=== PATIENT | female | born 1950 | race Caucasian/White ===

== ENCOUNTER → 2021-09-04 | Outpatient (CLI) | payer OTHER ==
[2016-01-30 08:08] VITALS: BP 167/84
[~2021-09-04] MED LIST: ACET-704 PO; ASCO100019 PO; ATOR20TA58 PO; CARV3.12 PO; CHOLECALCIFEROL 1000 UNIT PO; CYAN-25 PO; DOCU-158 PO; DULA1.5P SQ; FERR325T14 PO; GABA300C18 PO; GLIM4TAB8 PO; INSU100I13 SQ; LEVO100T5 PO; LEVO88TA4 PO; LOSA-73 PO; LOSA100T14 PO; MAGN400C PO; METF10007 PO; METF500T16 PO; ONDA8TAB9 PO; SIMV40TA18 PO; [UNRECOGNIZED DRUG - OTHER] PO
[2021-09-04 09:54] LABS: BASO % 1 % (0-3); EOS # 0.1 x10^3/uL (0.0-0.7); EOS % 4 % (0-3); HEMATOCRIT 30.5 % (36.0-47.0); HEMOGLOBIN 9.7 g/dL (12.0-15.5); LYMPH # 0.6 x10^3/uL (1.0-4.8); LYMPH % 15 % (24-48); MEAN CORPUSCULAR HEMOGLOBIN 29 pg (25-35); MEAN CORPUSCULAR HGB CONC 32 g/dL (31-37); MEAN CORPUSCULAR VOLUME 89 fL (79-100); MONO # 0.5 x10^3/uL (0.0-1.1); MONO % 13 % (0-9); NEUT # 2.7 x10^3/uL (1.8-7.7); NEUT % 68 % (31-73); PLATELET COUNT 244 x10^3/uL (140-400); RED CELL DISTRIBUTION WIDTH 16.6 % (11.5-14.5); WHITE BLOOD COUNT 3.9 x10^3/uL (4.0-11.0)
[2021-09-04 10:10] LABS: CALCIUM 9.1 mg/dL (8.5-10.1); CREATININE 1.4 mg/dL (0.6-1.0); GFR 37.1
[2021-09-04 10:14] LABS: ALBUMIN 3.1 g/dL (3.4-5.0); ALBUMIN/GLOBULIN RATIO 0.7 (1.0-1.7); TOTAL BILIRUBIN 0.2 mg/dL (0.2-1.0); TOTAL PROTEIN 7.3 g/dL (6.4-8.2)
== END ==
LOC: ONCLAB 09:07
PROVIDERS: ATTEND Internal Medicine Hematology & Oncology
DX: Z85.118 Personal history of other malignant neoplasm of bronchus and lung (principal)
CPT/HCPCS: 36415; 80053; 85025

== ENCOUNTER 2021-10-09 07:52 | Outpatient (CLI) | payer MEDICARE, OTHER ==
[~2021-10-09] VITALS: Ht 162.6 cm; Wt 73.6 kg
[2021-10-09] MEDS ORDERED: CETI10CA12 PO (08:26)
[2021-10-09] MEDS ORDERED: ASPI-630 PO (08:26)
[2021-10-09] MEDS ORDERED: BUPR150T15 PO (08:26)
[2021-10-09] MEDS ORDERED: CALC-31 PO (08:26)
[2021-10-09] MEDS ORDERED: MAGN250T9 PO (08:26)
[2021-10-09] MEDS ORDERED: CARV12.53 PO (08:26)
[2021-10-09] MEDS ORDERED: PROAIR RESPICL90 MCG IH (08:33)
[2021-10-09] MEDS ORDERED: TRIA1CAP3 PO (08:33)
[2021-10-09] MEDS ORDERED: OXYB-36 PO (08:33)
[2021-10-09] MEDS ORDERED: BUDE10.2 IH (08:33)
[2021-10-09] MEDS ORDERED: TIOT18CA IH (08:33)
[2021-10-09] MEDS ORDERED: FLUT9.9S NS (08:33)
[2021-10-09 08:34] VITALS: BP 197/79
[2021-10-09 08:38] LABS: BASO % 1 % (0-3); EOS # 0.1 x10^3/uL (0.0-0.7); EOS % 3 % (0-3); HEMATOCRIT 35.8 % (36.0-47.0); HEMOGLOBIN 11.6 g/dL (12.0-15.5); LYMPH # 0.6 x10^3/uL (1.0-4.8); LYMPH % 13 % (24-48); MEAN CORPUSCULAR HEMOGLOBIN 29 pg (25-35); MEAN CORPUSCULAR HGB CONC 33 g/dL (31-37); MEAN CORPUSCULAR VOLUME 89 fL (79-100); MONO # 0.5 x10^3/uL (0.0-1.1); MONO % 11 % (0-9); NEUT # 3.6 x10^3/uL (1.8-7.7); NEUT % 73 % (31-73); PLATELET COUNT 241 x10^3/uL (140-400); RED BLOOD COUNT 4.02 x10^6/uL (3.50-5.40); RED CELL DISTRIBUTION WIDTH 17.6 % (11.5-14.5); WHITE BLOOD COUNT 4.9 x10^3/uL (4.0-11.0)
[2021-10-09 08:39] LABS: PROTHROMBIN TIME PATIENT 13.6 SEC (11.7-14.0)
[2021-10-09] MEDS ORDERED: LIDOCAINE 1%/EPI 1:100,000 20 ML VIAL. ONE (09:35)
[2021-10-09] MEDS ORDERED: fentaNYL PF VIAL 100 MCG/2 ML VIAL ONE (09:48)
[2021-10-09] MEDS ORDERED: fentaNYL PF VIAL 100 MCG/2 ML VIAL IV ONE (10:00)
[2021-10-09] MEDS ORDERED: LIDOCAINE 1%/EPI 1:100,000 20 ML VIAL. INJ ONE (10:00)
[2021-10-09 10:09] VITALS: BP 173/73
[2021-10-09 10:15] VITALS: BP 185/75
[2021-10-09 10:30] VITALS: BP 177/87
[2021-10-09 10:45] VITALS: BP 192/76
--- NOTE | 2021-10-09 11:15 | NUR ---
Pt ambulated and tolerated PO. PIV dc'd. Discharge instructions, including moderate sedation and incision care, reviewed with patient and family. Patient home in private vehicle.
--- NOTE | 2021-10-10 11:45 | RAD ---
Removal of right internal jugular power port 10/09/2021 9:55 AM Indication: Patient no longer requires access for chemotherapy Discussion: The risks and benefits of the procedure including but limited to bleeding, catheter fragm entation, and infection were discussed the patient. Informed consent was obtained. The patient was br ought to the fluoroscopy suite and placed in the supine position. A time procedure was performed. The left chest was prepped using maximum sterile barrier technique. 1% lidocaine without epinephrine was administered for local anesthesia. A small incision was made overlying the port reservoir. The port reservoir and catheter were dissected, and removed intact. No overt evidence of infection was identif ied. The wound closed in layers using 3-0 Vicryl and 4-0 Vicryl suture. Dermabond was applied overlyi ng skin. A sterile dressing was applied. Total fluoroscopy time 0.1 minutes Dose area product 4 fco centimeters squared Impression: Successful removal of right internal jugular port Electronically signed by: Matt Allen MD (10/10/2021 11:43 AM) [id number]
== END 2021-10-09 11:20 | disposition home or self-care (01) ==
LOC: INTRAD 07:52
PROVIDERS: ATTEND Internal Medicine Hematology & Oncology
DX: Z45.2 Encounter for adjustment and management of vascular access device (principal); I10 Essential (primary) hypertension; I25.10 Atherosclerotic heart disease of native coronary artery without angina pectoris; E78.00 Pure hypercholesterolemia, unspecified; J44.9 Chronic obstructive pulmonary disease, unspecified; E11.9 Type 2 diabetes mellitus without complications; F17.210 Nicotine dependence, cigarettes, uncomplicated; Z79.82 Long term (current) use of aspirin; Z79.84 Long term (current) use of oral hypoglycemic drugs; Z79.899 Other long term (current) drug therapy; Z90.710 Acquired absence of both cervix and uterus; Z98.890 Other specified postprocedural states; Z88.0 Allergy status to penicillin; Z88.2 Allergy status to sulfonamides
CPT/HCPCS: 36415; 36590; 77001; 85025; 85610; J3010; J3490